=== PATIENT | female | born 1990 | race Caucasian/White ===

== ENCOUNTER 2023-04-23 10:04 | Emergency (ER) | payer BC ==
[~2023-04-23] VITALS: Ht 167.6 cm; Wt 68.7 kg
[2023-04-23] MEDS ORDERED: AMOX-580 PO (11:14)
[2023-04-23 11:39] VITALS: BP 128/89; PULSE 95; RESP 16; TEMP 98.3; O2SAT 96
== END 2023-04-23 11:41 | disposition home or self-care (01) ==
LOC: ER 10:05
DX: K04.7 Periapical abscess without sinus (principal); Z91.018 Allergy to other foods
CPT/HCPCS: 99283

== ENCOUNTER 2024-12-08 15:35 | Emergency (ER) | payer BC ==
[~2024-12-08] VITALS: Ht 165.1 cm; Wt 68.2 kg
[2024-12-08 15:50] VITALS: TEMP 97.6
--- NOTE | 2024-12-08 16:17 | RADIOLOGY REPORT ---
CLINICAL INDICATION: R/O FX TECHNIQUE: DI FOOT, COMPLETE (3VW MIN) Comparison: None FINDINGS/IMPRESSION: : There is no evidence of acute fracture or dislocation. Soft tissues are unremarkable. Linear lucency of the medial cuneiform and proximal 1st metatarsal possibly representing postsurgical change. Clinical correlation advised.
--- NOTE | 2024-12-08 16:31 | Physician Documentation ---
History of Present Illness ~ Chief Complaint: Foot pain Stated Complaint: FALL, FOOT PAIN Time Seen by MD: 16:30 Primary Medical Doctor: DR. AMIN HPI 34-year-old female who presents with left foot pain She tells me that she tripped and thinks that she hyperextended her toes on the left foot. She immediately had pain and swelling over the forefoot. It was difficult to walk. She also has several small abrasions to her foot. Unknown last tetanus shot. She did have surgery to the foot for a bunion Tetanus witin 5 years: No Medication Reconciliation Allergies: Coded Allergies: corn syrup (Verified Allergy, Unknown, 04/23/23) Uncoded Allergies: GLUTEN,SOY, DAIRY (Allergy, Unknown, hives, 04/23/23) Review of Systems Musculoskeletal: Reports: pain, swelling Physical Exam Vital Signs: Temperature: 97.6, Source: Temporal, Heart Rate: 89, Respiratory Rate: 16, BP: 117/73, Pulse Oximetry: 98, Weight: 68.180 Physical Exam General: This is a pleasant and very healthy-appearing young woman, partner at bedside Heart: Regular rate and rhythm, normal-appearing peripheral perfusion Lungs: normal work of breathing, normal oxygen saturation on room air Extremities: Warm and well-perfused Left foot: The patient has obvious bruising and swelling to the dorsum of the foot with significant tenderness to palpation diffusely in this region. No focal tenderness on palpation of the toes. She does have several small superficial abrasions to the foot including for the lateral 1st toe in the lateral foot. No large lacerations. No active bleeding. No tenderness on palpation of the bones of the proximal foot or ankle. Neuro: Alert and oriented Psychiatric: Calm and cooperative with exam Progress Results/Orders Results/Orders Orders - RASHAD LAWSON MD, Complete (3vw Min) (12/08/24 15:54) Completed Orders - RASHAD LAWSON MD, Complete (3vw Min) (12/08/24 15:54) Tetanus/Pertuss/Diph Acell/Pf (Boostrix (12/08/24 16:50) Medications Received in ER Medications (Trade) Dose Ordered Sig/Dena Route PRN Reason Start Time Stop Time Status Last Admin Dose Admin (Boostrix vaccine syringe) 0.5 ml ONCE ONCE IMVAC 12/08/24 16:50 12/08/24 16:51 DC 12/08/24 17:09 0.5 ML Vital Signs 12/08/24 12/08/24 15:50 17:49 Temp 97.6 Pulse 89 90 Resp 16 16 B/P (MAP) 117/73 111/70 Pulse Ox 98 98 EKG/XRAY/CT/US/VASC/MRI Bone/Soft Tissue X-Ray (Ext.) : Additional Comment I personally interpreted the x-ray, and it shows: No acute fracture or dislocation, there are some linear abnormalities likely related to previous bunion surgery Medical Decision Making Foot Diff Dx:Considerations: Include: Abrasion, Contusion, Dislocation, Fr acture-metatarsal, Fracture-phalynx, Laceration Additional Comment The patient presents with a foot injury. X-ray does not show definite fracture. Her exam is consistent with a significant sprain. I did offer to perform a CT scan for further evaluation of a possible occult fracture, but after shared decision-making conversation, the patient declined this. She was given ice. She will be given a walking boot and crutches. If she continues to have significant pain or limitation she will seek re-evaluation in 1-2 weeks for repeat imaging. Departure Time of Disposition: 17:35 Disposition: 01 HOME / SELF CARE / HOMELESS Impression: Primary Impression: Sprain of foot Condition: Stable Discharge Instructions: Foot Sprain Referrals: NO PRIMARY CARE PROVIDER (PCP) Education Educated: Patient, Family Educated regarding: diagnosis, treatment Signature Scribe Signature: na Attestation: RASHAD Russell MD Dec 08, 2024 16:31
[2024-12-08] MEDS: TETanus/Pertussis (Acell)/Diphther VAC/PF (Tdap-Adult) 0.5ml syringe IMVAC ONE (17:09)
[2024-12-08 17:49] VITALS: BP 111/70; PULSE 90; RESP 16; O2SAT 98
== END 2024-12-08 17:50 | disposition home or self-care (01) ==
LOC: ER 15:36
DX: S93.692A Other sprain of left foot, initial encounter (principal); Z91.018 Allergy to other foods; X50.9XXA Other and unspecified overexertion or strenuous movements or postures, initial encounter; Y93.89 Activity, other specified; Y92.89 Other specified places as the place of occurrence of the external cause; Y99.8 Other external cause status
CPT/HCPCS: 73630; 90471; 90715; 99283; L4360; A6258; A6449